=== PATIENT | female | born 1965 | race African-American/Black ===

== ENCOUNTER 2023-07-16 01:08 | Emergency (ER) | payer BC, OTHER ==
[~2023-07-16] VITALS: Ht 154.9 cm; Wt 100.0 kg
[2023-07-16 01:11] VITALS: PULSE 104; RESP 16
[2023-07-16 01:23] VITALS: BP 155/70; TEMP 100.4; O2SAT 98
[2023-07-16] MEDS ORDERED: ACETAMINOPHEN 325MG TABLET PO ONE (02:00)
[2023-07-16 05:05] LABS: HEMATOCRIT. 38.3 % (36.0-48.0); HEMOGLOBIN. 12.6 g/dL (12.0-16.0); MEAN CORPUSCULAR HEMOGLOBIN 27.7 pg (28.0-32.0); MEAN CORPUSCULAR HGB CONC 32.8 g/dL (31.0-37.0); MEAN CORPUSCULAR VOLUME 84.4 fL (81.0-99.0); MEAN PLATELET VOLUME 8.3 fl (7.4-10.4); PLATELET 213 x1000/uL (130-400); RED BLOOD CELL COUNT 4.53 mill/uL (4.2-5.4); RED CELL DISTRIBUTION WIDTH 13.7 % (11.6-14.6); WHITE BLOOD COUNT 4.4 x1000/uL (4.5-11.0)
[2023-07-16 05:13] LABS: CHLORIDE 106 mEq/L (98-107); INDEX HEMOLYSI 1 (1-3); INDEX ICTERIC 1 (1-4); INDEX LIPEMIC 1 (1-3); POTASSIUM 3.7 mEq/L (3.5-5.1); SODIUM 135 mEq/L (136-145)
[2023-07-16 05:22] LABS: ALANINE AMINOTRANSFERASE 24 IU/L (13-61); ALBUMIN 3.7 g/dL (3.4-5.0); ASPARTATE AMINOTRANSFERASE 28 IU/L (15-37); BILIRUBIN TOTAL 0.4 mg/dL (0.1-1.0); CALCIUM 8.6 mg/dL (8.5-10.1); CARBON DIOXIDE 24 mEq/L (21-32); CREATININE 0.7 mg/dL (0.6-1.3); GLUCOSE 126 mg/dL (70-105); PROTEIN TOTAL 7.5 g/dL (6.0-8.3); UREA NITROGEN BLOOD 10 mg/dL (7-21)
[2023-07-16 05:30] LABS: DIFFERENTIAL COMMENT 1
[2023-07-16 06:42] LABS: PLATELET ESTIMATE NORMAL
[2023-07-16] MEDS ORDERED: GUAIFENESIN 600MG ER TABLET PO SCH (09:00)
[2023-07-17] MEDS ORDERED: METO-539 MT (11:08)
[2023-07-17] MEDS ORDERED: METO-385 PO (11:08)
== END 2023-07-16 07:30 | disposition home or self-care (01) ==
LOC: ER 01:08
DX: B34.8 Other viral infections of unspecified site (principal); Z90.710 Acquired absence of both cervix and uterus; Z90.49 Acquired absence of other specified parts of digestive tract; Z98.890 Other specified postprocedural states; Z88.0 Allergy status to penicillin; Z20.822 Contact with and (suspected) exposure to COVID-19
CPT/HCPCS: 99284; 71045; 87426; 80053; 85025; 36415; C9803

== ENCOUNTER 2023-07-16 17:23 | Inpatient (IN) | payer OTHER ==
[~2023-07-16] VITALS: Ht 154.9 cm; Wt 99.4 kg
[2023-07-16] MEDS ORDERED: LACTATED RINGERS 1,000 ML IV SCH (18:15)
[2023-07-16 18:23] LABS: HEMATOCRIT. 41.3 % (36.0-48.0); HEMOGLOBIN. 13.3 g/dL (12.0-16.0); MEAN CORPUSCULAR HEMOGLOBIN 27.9 pg (28.0-32.0); MEAN CORPUSCULAR HGB CONC 32.3 g/dL (31.0-37.0); MEAN CORPUSCULAR VOLUME 86.4 fL (81.0-99.0); PLATELET 201 x1000/uL (130-400); RED BLOOD CELL COUNT 4.77 mill/uL (4.2-5.4); RED CELL DISTRIBUTION WIDTH 13.9 % (11.6-14.6); WHITE BLOOD COUNT 4.6 x1000/uL (4.5-11.0)
[2023-07-16 18:29] LABS: DIFFERENTIAL COMMENT 1
[2023-07-16 18:33] LABS: CHLORIDE 104 mEq/L (98-107); INDEX HEMOLYSI 1 (1-3); INDEX ICTERIC 1 (1-4); INDEX LIPEMIC 1 (1-3); POTASSIUM 3.7 mEq/L (3.5-5.1); SODIUM 137 mEq/L (136-145)
[2023-07-16 18:40] LABS: ALANINE AMINOTRANSFERASE 26 IU/L (13-61); ASPARTATE AMINOTRANSFERASE 31 IU/L (15-37); BILIRUBIN TOTAL 0.4 mg/dL (0.1-1.0); CALCIUM 9.1 mg/dL (8.5-10.1); CARBON DIOXIDE 26 mEq/L (21-32); CREATININE 0.9 mg/dL (0.6-1.3); GLUCOSE 100 mg/dL (70-105); PROTEIN TOTAL 7.8 g/dL (6.0-8.3); UREA NITROGEN BLOOD 12 mg/dL (7-21)
[2023-07-16 21:11] LABS: PLATELET ESTIMATE NORMAL
[2023-07-17 04:47] LABS: CLARITY URINE CLEAR (CLEAR); COLOR URINE YELLOW (YELLOW); GLUCOSE URINE NEGATIVE (NEGATIVE); KETONES URINE 2+ (NEGATIVE); LEUKOCYTE ESTERASE URINE NEGATIVE (NEGATIVE); NITRITE URINE NEGATIVE (NEGATIVE); OCCULT BLOOD URINE NEGATIVE (NEGATIVE); PH URINE 5.5 (4.5-8.0); PROTEIN URINE TRACE (NEGATIVE); SPECIFIC GRAVITY URINE 1.018 (1.005-1.030); UROBILINOGEN URINE 0.2 E.U./dL (0.2-1.0)
[2023-07-17 04:50] LABS: WBC URINE 0-2 /hpf (0-2); YEAST URINE NONE SEEN
[2023-07-17 05:24] LABS: SQUAMOUS EPITHELIAL CELL URINE FEW /lpf (RARE/1+)
[2023-07-17 05:26] LABS: BACTERIA URINE TRACE
[2023-07-17 08:30] VITALS: BP 120/72; PULSE 64; RESP 18; TEMP 101
[2023-07-17] MEDS ORDERED: IPRATROPIUM/ALBUTEROL 0.5-3(2.5)MG/3ML NEB HHN PRN (10:00)
[2023-07-17] MEDS: ACETAMINOPHEN 325MG TABLET PO PRN (10:30)
[2023-07-17] MEDS ORDERED: METO-539 MT (11:08)
[2023-07-17] MEDS ORDERED: METO-385 PO (11:08)
[2023-07-17 12:00] VITALS: BP 120/61; PULSE 60; RESP 18; TEMP 98
[2023-07-17] MEDS: LEVOFLOXACIN 500MG PREMIX 100 ML IV SCH (14:25)
[2023-07-17] MEDS ORDERED: CLONIDINE 0.1MG TABLET PO PRN (15:45)
[2023-07-17] MEDS ORDERED: ACETAMINOPHEN 325MG TABLET PO PRN (15:45)
[2023-07-17] MEDS ORDERED: ONDANSETRON HCL 4MG/2ML INJ IV PRN (15:45)
[2023-07-17] MEDS ORDERED: HYDROCODONE/ACETAMINOPHEN 5/325MG TABLET PO PRN (15:45)
[2023-07-17 16:00] VITALS: BP 125/70; PULSE 62; RESP 18; TEMP 97.9
[2023-07-17] MEDS ORDERED: NALOXONE HCL 0.4MG/ML VIAL IV PRN (16:00)
[2023-07-17] MEDS: ENOXAPARIN 30MG/0.3ML SYR SUBCUT SCH (17:27)
[2023-07-17 20:00] VITALS: BP 118/64; PULSE 66; RESP 19; TEMP 99.5
[2023-07-17] MEDS ORDERED: IOHEXOL-350 100 ML BOTTLE ONE (23:17)
[2023-07-17 23:41] LABS: CREATINE KINASE 98 IU/L (26-192); CREATINE KINASE MB FRACTION 1.3 ng/mL (0.5-3.6); INDEX HEMOLYSI 1 (1-3); TROPONIN I HIGH SENSITIVITY 13 ng/L (<54)
[2023-07-18] VITALS: BP 112/64; PULSE 65; RESP 19; TEMP 98.1
[2023-07-18 04:00] VITALS: BP 122/54; PULSE 58; RESP 19; TEMP 98.4
[2023-07-18] MEDS: ENOXAPARIN 30MG/0.3ML SYR SUBCUT SCH ×2 (07:02→17:05)
[2023-07-18 07:28] LABS: INDEX HEMOLYSI 1 (1-3)
[2023-07-18 07:39] LABS: CREATINE KINASE 102 IU/L (26-192); CREATINE KINASE MB FRACTION < 1.0 ng/mL (0.5-3.6); TROPONIN I HIGH SENSITIVITY 12 ng/L (<54)
[2023-07-18 08:10] VITALS: BP 123/57; PULSE 63; RESP 18; TEMP 98
[2023-07-18] MEDS: ACETAMINOPHEN 325MG TABLET PO PRN (10:19)
[2023-07-18 13:03] VITALS: BP 113/56; PULSE 62; RESP 20; TEMP 98.4
[2023-07-18] MEDS: LEVOFLOXACIN 500MG PREMIX 100 ML IV SCH (14:51)
[2023-07-18 16:30] VITALS: BP 124/51; PULSE 72; RESP 18; TEMP 100.2
[2023-07-18 17:09] VITALS: BP 113/56; PULSE 62; TEMP 98.4; O2SAT 97
== END 2023-07-18 17:45 | disposition home or self-care (01) | DRG 845 ==
LOC: ER 17:23 → EDBEDREQ 18:25 → MICUSO 21:02 → EDBEDREQ 21:11 → 8WST 07-17 08:52
PROVIDERS: ADMIT Internal Medicine; ATTEND Internal Medicine
DX: D49.89 Neoplasm of unspecified behavior of other specified sites (principal); J06.9 Acute upper respiratory infection, unspecified; I10 Essential (primary) hypertension; Z88.0 Allergy status to penicillin; Z90.710 Acquired absence of both cervix and uterus
CPT/HCPCS: 36415; 71046; 71275; 80053; 81003; 82550; 82553; 84484; 85025; 85379; 87426; 87804; 93005; 93306; 93970; 99285; J1650; J1956; Q9967

== ENCOUNTER → 2023-07-21 | Outpatient (CLI) | payer OTHER ==
[~2023-07-21] MED LIST: METO-385 PO; METO-539 MT
== END | disposition home or self-care (01) ==
LOC: CARD 10:17
PROVIDERS: ATTEND Thoracic Surgery (Cardiothoracic Vascular Surgery)
DX: E32.8 Other diseases of thymus (principal); Z20.822 Contact with and (suspected) exposure to COVID-19
CPT/HCPCS: 93005; 87426; C9803

== ENCOUNTER 2023-07-27 10:53 | Inpatient (IN) | payer OTHER ==
[~2023-07-27] VITALS: Ht 154.9 cm; Wt 98.9 kg
[2023-07-27] VITALS (35 sets, daily range): BP systolic 99–167; BP diastolic 44–69; PULSE 85–111; RESP 17–27; TEMP 98.3–99.3; O2SAT 95–100
[~2023-07-27 10:53] MED LIST changes: +DOBUTAMINE 250 MG/250 ML PREMIX IV NR; +EPINEPHRINE 5 MG in DEXT 5% WATER 250 ML IV NR; +INSULIN REGULAR 100 U/100 ML PREMIX IV NR; +LIDOCAINE HCL 1%/EPI 1:200,000 30 ML VIAL ONE; -METO-385 PO; +MONT-39 PO; +NICARDIPINE 40MG/200ML PREMIX 230 ML IV NR; +NOREPINEPHRINE 8MG/250ML PMX 250 ML IV NR; +POLYMYXIN B SULFATE 500000 UNITS/VIAL ONE; +SODIUM CHLORIDE 0.9% 1,000 ML IV SCH; +THROMBIN (BOVINE) 5000 UNITS/VIAL TOP ONE; +VANCOMYCIN 1 G/200 ML PREMIX IV NR
[2023-07-27 11:35] LABS: BASOPHILS % 0.7 % (0.0-2.0); EOSINOPHILS % 2.5 % (0.0-5.0); HEMATOCRIT. 42.4 % (36.0-48.0); HEMOGLOBIN. 14.2 g/dL (12.0-16.0); LYMPHOCYTES % 49.4 % (20.0-50.0); MEAN CORPUSCULAR HEMOGLOBIN 28.3 pg (28.0-32.0); MEAN CORPUSCULAR HGB CONC 33.5 g/dL (31.0-37.0); MEAN CORPUSCULAR VOLUME 84.6 fL (81.0-99.0); MEAN PLATELET VOLUME 7.4 fl (7.4-10.4); MONOCYTES % 11.4 % (2.0-8.0); PLATELET 415 x1000/uL (130-400); RED BLOOD CELL COUNT 5.01 mill/uL (4.2-5.4); RED CELL DISTRIBUTION WIDTH 13.7 % (11.6-14.6); WHITE BLOOD COUNT 6.1 x1000/uL (4.5-11.0)
[2023-07-27 11:41] LABS: PARTIAL THROMBOPLASTIN TIME 27.5 sec (23.4-31.0); PROTHROMBIN TIME 10.6 sec (9.6-11.0)
[2023-07-27 11:46] LABS: CLARITY URINE CLEAR (CLEAR); COLOR URINE YELLOW (YELLOW); GLUCOSE URINE NEGATIVE (NEGATIVE); KETONES URINE NEGATIVE (NEGATIVE); LEUKOCYTE ESTERASE URINE NEGATIVE (NEGATIVE); NITRITE URINE NEGATIVE (NEGATIVE); OCCULT BLOOD URINE NEGATIVE (NEGATIVE); PROTEIN URINE NEGATIVE (NEGATIVE); SPECIFIC GRAVITY URINE 1.011 (1.005-1.030); UROBILINOGEN URINE 0.2 E.U./dL (0.2-1.0)
[2023-07-27 11:47] LABS: CALCIUM 9.3 mg/dL (8.5-10.1); CHLORIDE 109 mEq/L (98-107); INDEX HEMOLYSI 1 (1-3); INDEX ICTERIC 1 (1-4); INDEX LIPEMIC 1 (1-3); POTASSIUM 4.4 mEq/L (3.5-5.1); SODIUM 142 mEq/L (136-145)
[2023-07-27 11:48] LABS: UCG SCREEN NEGATIVE
[2023-07-27 12:02] LABS: CARBON DIOXIDE 29 mEq/L (21-32); CREATININE 0.8 mg/dL (0.6-1.3); GLUCOSE 110 mg/dL (70-105); UREA NITROGEN BLOOD 10 mg/dL (7-21)
[2023-07-27] MEDS ORDERED: NICARDIPINE 40MG/200ML PREMIX 200 ML IV ONE (12:23)
[2023-07-27] MEDS ORDERED: PROM6.2527 PO (13:04)
[2023-07-27] MEDS ORDERED: BENZ200C52 PO (13:04)
[2023-07-27] MEDS ORDERED: ROCURONIUM BROMIDE 10MG/ML VIAL 5ML IV ONE (13:20)
[2023-07-27] MEDS ORDERED: FENTANYL CITRATE/PF 50MCG/ML 2ML VIAL ONE (13:49)
[2023-07-27] MEDS ORDERED: CALCIUM CHLORIDE 1GM/10ML SYR IV ONE (13:57)
[2023-07-27] MEDS ORDERED: GLYCOPYRROLATE 0.2 MG/ML 2ML VIAL ONE ×2 (13:58→14:31)
[2023-07-27] MEDS ORDERED: NEOSTIGMINE METHYLSULFATE 1MG/ML 10 ML VIAL ONE (14:31)
[2023-07-27] MEDS ORDERED: DEXAMETHASONE 4MG/ML 1ML VIAL ONE (14:37)
[2023-07-27] MEDS ORDERED: ALBUTEROL 6.7GM HFA INHALER ONE (14:37)
[2023-07-27] MEDS ORDERED: SUGAMMADEX SODIUM 200 MG/2 ML VIAL IV NR (14:45)
[2023-07-27] MEDS ORDERED: ALBUMIN HUMAN 25GM/100ML (25%) IV PRN (15:00)
[2023-07-27] MEDS ORDERED: ALBUMIN HUMAN 12.5G/250ML (5%) IV PRN (15:00)
[2023-07-27] MEDS ORDERED: MAGNESIUM 1 G PREMIX 100 ML IV PRN (15:00)
[2023-07-27] MEDS ORDERED: CALCIUM CHLORIDE 5,000 MG in DEXT 5% WATER 500 ML IV PRN (15:00)
[2023-07-27] MEDS ORDERED: CALCIUM CHLORIDE 3,000 MG in DEXT 5% WATER 250 ML IV PRN (15:00)
[2023-07-27] MEDS ORDERED: SODIUM CHLORIDE 0.9% 500 ML IV PRN (15:00)
[2023-07-27] MEDS ORDERED: ACETAMINOPHEN 325MG TABLET PO PRN (15:00)
[2023-07-27] MEDS ORDERED: MAGNESIUM SULFATE 3 GM in DEXT 5% WATER 100 ML IV PRN (15:00)
[2023-07-27] MEDS ORDERED: MAGNESIUM 2 G PREMIX 50 ML IV PRN (15:00)
[2023-07-27] MEDS ORDERED: ONDANSETRON HCL 4MG/2ML INJ IV PRN (15:00)
[2023-07-27] MEDS ORDERED: NALOXONE HCL 0.4MG/ML VIAL IV PRN (15:30)
[2023-07-27] MEDS: IPRATROPIUM/ALBUTEROL 0.5-3(2.5)MG/3ML NEB HHN SCH ×2 (16:08→20:41)
[2023-07-27] MEDS: MORPHINE SULFATE 2 MG/ML CPJ (NOT FOR IM USE) IV PRN (16:09)
[2023-07-27 16:27] LABS: BG BASE EXCESS -2.7 mmol/L (-2.0-2.0); BG CARBOXYHEMOGLOBIN 0.5 % (0.5-1.5); BG DEOXYHEMOGLOBIN 1.2 % (0.0-5.0); BG HCO3 ACT 22.3 mmol/L (22.0-26.0); BG METHEMOGLOBIN 0.4 % (0.0-1.5); BG OXYGEN SATURATION 98.8 % (92.0-98.5); BG OXYHEMOGLOBIN 97.9 % (94.0-97.0); BG PCO2 39.5 mmHg (35.0-45.0); BG SAMPLE SITE ALINE; BG TOTAL HEMOGLOBIN 14.6 g/dL (12.0-18.0); BG VENT MODE HHN MASK
[2023-07-27] MEDS ORDERED: VANCOMYCIN 1500MG in DEXTROSE 5% WATER 250ML IV NR (16:30)
[2023-07-27] MEDS: BACITRACIN 15GM TUBE TOP SCH (17:00)
[2023-07-27] MEDS: OXYCODONE HCL/ACETAMINOPHEN 5/325MG TABLET PO PRN (22:37)
[2023-07-27] MEDS: METOPROLOL TARTRATE 25MG TABLET PO SCH (22:38)
[2023-07-28] VITALS (78 sets, daily range): BP systolic 96–158; BP diastolic 56–81; PULSE 66–105; RESP 15–27; TEMP 97.6–98.3; O2SAT 96–99
[2023-07-28] MEDS ORDERED: VANCOMYCIN 1500MG in DEXTROSE 5% WATER 250ML IV NR ×2
[2023-07-28] MEDS: IPRATROPIUM/ALBUTEROL 0.5-3(2.5)MG/3ML NEB HHN SCH ×6 (00:15→20:44)
[2023-07-28] MEDS: KETOROLAC 30MG/ML VIAL IV PRN ×2 (03:44→08:45)
[2023-07-28 05:33] LABS: HEMATOCRIT. 39.1 % (36.0-48.0); HEMOGLOBIN. 12.9 g/dL (12.0-16.0); MEAN CORPUSCULAR HEMOGLOBIN 27.7 pg (28.0-32.0); MEAN CORPUSCULAR HGB CONC 33.1 g/dL (31.0-37.0); MEAN CORPUSCULAR VOLUME 83.6 fL (81.0-99.0); MEAN PLATELET VOLUME 7.9 fl (7.4-10.4); PLATELET 352 x1000/uL (130-400); RED BLOOD CELL COUNT 4.67 mill/uL (4.2-5.4); RED CELL DISTRIBUTION WIDTH 13.8 % (11.6-14.6); WHITE BLOOD COUNT 13.6 x1000/uL (4.5-11.0)
[2023-07-28 05:38] LABS: DIFFERENTIAL COMMENT 1
[2023-07-28] MEDS: MORPHINE SULFATE 2 MG/ML CPJ (NOT FOR IM USE) IV PRN (05:47)
[2023-07-28 05:51] LABS: CALCIUM 9.9 mg/dL (8.5-10.1); POTASSIUM 4.4 mEq/L (3.5-5.1)
[2023-07-28 05:55] LABS: CREATININE 1.2 mg/dL (0.6-1.3)
[2023-07-28 07:27] LABS: PLATELET ESTIMATE NORMAL
[2023-07-28] MEDS ORDERED: FAMOTIDINE 20MG/2ML VIAL IV SCH (09:00)
[2023-07-28] MEDS: METOPROLOL TARTRATE 25MG TABLET PO SCH ×2 (09:21→22:13)
[2023-07-28] MEDS: BACITRACIN 15GM TUBE TOP SCH ×2 (09:22→17:20)
[2023-07-28] MEDS: OXYCODONE HCL/ACETAMINOPHEN 5/325MG TABLET PO PRN ×4 (09:46→16:14)
[2023-07-28] MEDS ORDERED: VANCOMYCIN 750MG PREMIX 150 ML IV SCH (12:00)
[2023-07-28] MEDS ORDERED: VANCOMYCIN 750MG PREMIX 150 ML IV NR (12:00)
[2023-07-28] MEDS ORDERED: MAGNESIUM 4 G PREMIX 100 ML IV ONE (14:30)
[2023-07-28] MEDS ORDERED: FUROSEMIDE 40MG/4ML VIAL IVP NR (14:30)
[2023-07-28] MEDS ORDERED: MAGNESIUM 4 G PREMIX 100 ML IV NR (15:30)
[2023-07-29] VITALS (12 sets, daily range): BP systolic 116–150; BP diastolic 61–85; PULSE 76–94; RESP 13–20; TEMP 97.6–98.5; O2SAT 94–99
[2023-07-29] MEDS: IPRATROPIUM/ALBUTEROL 0.5-3(2.5)MG/3ML NEB HHN SCH ×6 (00:35→21:38)
[2023-07-29 07:47] LABS: BASOPHILS % 0.1 % (0.0-2.0); EOSINOPHILS % 0.1 % (0.0-5.0); HEMATOCRIT. 36.8 % (36.0-48.0); HEMOGLOBIN. 12.3 g/dL (12.0-16.0); LYMPHOCYTES % 11.5 % (20.0-50.0); MEAN CORPUSCULAR HGB CONC 33.4 g/dL (31.0-37.0); MONOCYTES % 12.6 % (2.0-8.0); NEUTROPHILS % 75.7 % (40.0-76.0); RED BLOOD CELL COUNT 4.38 mill/uL (4.2-5.4); WHITE BLOOD COUNT 13.5 x1000/uL (4.5-11.0)
[2023-07-29 07:54] LABS: CALCIUM 9.2 mg/dL (8.5-10.1); CREATININE 1.3 mg/dL (0.6-1.3)
[2023-07-29 08:13] LABS: DIFFERENTIAL COMMENT 1
[2023-07-29] MEDS: METOPROLOL TARTRATE 25MG TABLET PO SCH ×2 (09:28→21:21)
[2023-07-29] MEDS: FAMOTIDINE 20MG TABLET PO SCH (09:28)
[2023-07-29] MEDS: BACITRACIN 15GM TUBE TOP SCH ×2 (09:29→17:18)
[2023-07-29 09:55] LABS: PLATELET 312 x1000/uL (130-400)
[2023-07-29] MEDS: MORPHINE SULFATE 2 MG/ML CPJ (NOT FOR IM USE) IV PRN ×2 (11:36→20:37)
[2023-07-29] MEDS ORDERED: FUROSEMIDE 40MG/4ML VIAL IVP NR (16:15)
[2023-07-30] VITALS (11 sets, daily range): BP systolic 136–149; BP diastolic 77–91; PULSE 80–92; RESP 15–21; TEMP 98.2–99.6; O2SAT 97–98
[2023-07-30] MEDS: IPRATROPIUM/ALBUTEROL 0.5-3(2.5)MG/3ML NEB HHN SCH ×6 (01:44→21:13)
[2023-07-30 07:08] LABS: HEMOGLOBIN. 12.4 g/dL (12.0-16.0); MEAN CORPUSCULAR HEMOGLOBIN 27.7 pg (28.0-32.0); MEAN CORPUSCULAR HGB CONC 32.7 g/dL (31.0-37.0); MEAN CORPUSCULAR VOLUME 84.7 fL (81.0-99.0); MEAN PLATELET VOLUME 7.7 fl (7.4-10.4); PLATELET 283 x1000/uL (130-400); RED BLOOD CELL COUNT 4.49 mill/uL (4.2-5.4); WHITE BLOOD COUNT 8.2 x1000/uL (4.5-11.0)
[2023-07-30 07:30] LABS: DIFFERENTIAL COMMENT 1
[2023-07-30 07:32] LABS: POTASSIUM 4.1 mEq/L (3.5-5.1)
[2023-07-30 07:37] LABS: CALCIUM 9.4 mg/dL (8.5-10.1); CREATININE 1.3 mg/dL (0.6-1.3)
[2023-07-30] MEDS: FAMOTIDINE 20MG TABLET PO SCH (09:00)
[2023-07-30] MEDS: BACITRACIN 15GM TUBE TOP SCH ×2 (09:00→17:38)
[2023-07-30] MEDS: METOPROLOL TARTRATE 25MG TABLET PO SCH ×2 (09:00→21:09)
[2023-07-30] MEDS ORDERED: FUROSEMIDE 40MG/4ML VIAL IVP NR (14:30)
[2023-07-30 14:33] LABS: NUCLEATED RED BLOOD CELLS 1 /100 WBC; PLATELET ESTIMATE NORMAL
[2023-07-31] VITALS (11 sets, daily range): BP systolic 129–150; BP diastolic 78–92; PULSE 67–88; RESP 13–23; TEMP 98–98.7; O2SAT 96–98
[2023-07-31] MEDS: IPRATROPIUM/ALBUTEROL 0.5-3(2.5)MG/3ML NEB HHN SCH ×5 (00:46→18:12)
[2023-07-31] MEDS: BACITRACIN 15GM TUBE TOP SCH ×2 (09:29→17:00)
[2023-07-31] MEDS: METOPROLOL TARTRATE 25MG TABLET PO SCH ×2 (09:30→21:20)
[2023-07-31] MEDS: FAMOTIDINE 20MG TABLET PO SCH (09:31)
[2023-07-31] MEDS: OXYCODONE HCL/ACETAMINOPHEN 5/325MG TABLET PO PRN (13:04)
[2023-07-31 13:36] LABS: BASOPHILS % 0.4 % (0.0-2.0); EOSINOPHILS % 3.6 % (0.0-5.0); HEMATOCRIT. 38.7 % (36.0-48.0); HEMOGLOBIN. 12.9 g/dL (12.0-16.0); MEAN CORPUSCULAR HGB CONC 33.2 g/dL (31.0-37.0); MEAN CORPUSCULAR VOLUME 84.3 fL (81.0-99.0); MEAN PLATELET VOLUME 7.8 fl (7.4-10.4); MONOCYTES % 12.7 % (2.0-8.0); NEUTROPHILS % 59.3 % (40.0-76.0); PLATELET 277 x1000/uL (130-400); RED CELL DISTRIBUTION WIDTH 13.6 % (11.6-14.6); WHITE BLOOD COUNT 7.2 x1000/uL (4.5-11.0)
[2023-07-31 13:47] LABS: CHLORIDE 101 mEq/L (98-107); INDEX HEMOLYSI 1 (1-3); INDEX ICTERIC 1 (1-4); INDEX LIPEMIC 1 (1-3); POTASSIUM 4.2 mEq/L (3.5-5.1); SODIUM 136 mEq/L (136-145)
[2023-07-31 13:55] LABS: CALCIUM 9.3 mg/dL (8.5-10.1); CARBON DIOXIDE 26 mEq/L (21-32); CREATININE 1.1 mg/dL (0.6-1.3); GLUCOSE 140 mg/dL (70-105); UREA NITROGEN BLOOD 22 mg/dL (7-21)
[2023-08-01] VITALS: BP 121/71; PULSE 80; RESP 18; TEMP 98.2
[2023-08-01 04:00] VITALS: BP 132/75; PULSE 83; RESP 19; TEMP 98
[2023-08-01 05:32] LABS: BASOPHILS % 0.4 % (0.0-2.0); EOSINOPHILS % 4.3 % (0.0-5.0); HEMOGLOBIN. 12.3 g/dL (12.0-16.0); LYMPHOCYTES % 28.3 % (20.0-50.0); MEAN CORPUSCULAR HEMOGLOBIN 27.9 pg (28.0-32.0); MEAN CORPUSCULAR HGB CONC 33.1 g/dL (31.0-37.0); MEAN CORPUSCULAR VOLUME 84.2 fL (81.0-99.0); MEAN PLATELET VOLUME 7.8 fl (7.4-10.4); MONOCYTES % 12.5 % (2.0-8.0); NEUTROPHILS % 54.5 % (40.0-76.0); PLATELET 265 x1000/uL (130-400); RED CELL DISTRIBUTION WIDTH 13.8 % (11.6-14.6); WHITE BLOOD COUNT 7.2 x1000/uL (4.5-11.0)
[2023-08-01 08:00] VITALS: BP 121/71; PULSE 80; RESP 18; TEMP 98.2
[2023-08-01 08:25] LABS: CALCIUM 9.3 mg/dL (8.5-10.1); POTASSIUM 4.4 mEq/L (3.5-5.1)
[2023-08-01 08:34] LABS: CREATININE 1.2 mg/dL (0.6-1.3)
[2023-08-01] MEDS: METOPROLOL TARTRATE 25MG TABLET PO SCH (08:46)
[2023-08-01] MEDS: FAMOTIDINE 20MG TABLET PO SCH (08:46)
[2023-08-01] MEDS: BACITRACIN 15GM TUBE TOP SCH ×2 (08:48→17:00)
[2023-08-01 12:18] VITALS: BP 155/81; PULSE 78; RESP 20; TEMP 98
[2023-08-01] MEDS: OXYCODONE HCL/ACETAMINOPHEN 5/325MG TABLET PO PRN (12:19)
[2023-08-01 16:00] VITALS: BP 121/71; PULSE 80; RESP 18; TEMP 98.2
[2023-08-01 16:50] VITALS: BP 121/71; PULSE 80; TEMP 98.2; O2SAT 96
== END 2023-08-01 19:10 | DRG 988 ==
LOC: OR 10:53 → CVICU 14:39 → 3WST 07-28 19:43 → UNDODISIN 08-01 18:49
PROVIDERS: ADMIT Internal Medicine; ATTEND Internal Medicine
PROC: 0WBC0ZZ Excision of Mediastinum, Open Approach (ICD-10-PCS; principal; 2023-07-27)
DX: R22.2 Localized swelling, mass and lump, trunk (principal); Z68.41 Body mass index [BMI] 40.0-44.9, adult; I10 Essential (primary) hypertension; E66.9 Obesity, unspecified; Z88.0 Allergy status to penicillin
CPT/HCPCS: 36415; 36600; 71045; 80048; 81003; 81025; 82375; 82805; 82962; 83036; 83735; 84443; 85025; 86850; 86900; 88304; 93005; 94640; 97110; 97116; 97162; 97166; 97530; 97535; J1100; J1815; J1885; J1940; J2270; J2710; J3010; J3370; J3475; J3490; J7060